=== PATIENT | female | born 1935 | race Caucasian/White ===

== ENCOUNTER 2022-06-12 16:07 | Inpatient (IN) | payer OTHER ==
[~2022-06-12] VITALS: Ht 165.1 cm; Wt 75.0 kg
[~2022-06-12 16:07] MED LIST: METO50TA18 PO
[2022-06-12 16:55] LABS: BASOPHILS % (AUTO) 0.7 % (0.0-5.0); HEMATOCRIT 43.6 % (36-48); LYMPHOCYTES % (AUTO) 12.8 % (21.0-51.0); MEAN CORPUSCULAR HEMOGLOBIN 31.1 pg (27.0-33.0); MEAN CORPUSCULAR HGB CONC 31.2 g/dL (32.0-36.0); MEAN CORPUSCULAR VOLUME 99.8 fL (79-99); NEUTROPHILS % (AUTO) 75.1 % (40.0-77.0); PLATELET COUNT (AUTO) 186 K/uL (130-400); RED BLOOD CELL COUNT(AUTO) 4.37 MIL/uL (4.00-5.50); WHITE BLOOD COUNT (AUTO) 7.3 K/uL (4.8-10.8)
[2022-06-12] MEDS ORDERED: 0.9%NACL 1000ML 500 ML IV ONE (17:00)
[2022-06-12] MEDS ORDERED: LABETALOL 20MG VIAL IV ONE (17:00)
[2022-06-12] MEDS ORDERED: METOPROLOL TARTRATE 1 MG/ML 5ML VIAL IV ONE ×3 (17:00→17:13)
[2022-06-12 17:20] LABS: CREATININE 1.3 mg/dL (0.5-1.5); POTASSIUM 4.3 mmol/L (3.5-5.1); TOTAL PROTEIN, SERUM 7.5 g/dL (6.0-8.3)
[2022-06-12] MEDS ORDERED: NITROGLYCERIN 0.4 MG SL TAB SL PRN (18:00)
[2022-06-12] MEDS ORDERED: DILTIAZEM 125MG+100 ML NS 125 ML IV SCH (18:30)
[2022-06-12] MEDS ORDERED: DILTIAZEM 50MG VIAL IV SCH (18:30)
[2022-06-12] MEDS ORDERED: FUROSEMIDE 40MG VIAL IV ONE (18:30)
[2022-06-12] MEDS ORDERED: MORPHINE 2 MG SYG IV PRN (21:00)
[2022-06-12] MEDS ORDERED: MORPHINE 4 MG SYG IV PRN (21:00)
[2022-06-12] MEDS ORDERED: ONDANSETRON 4MG INJ IV PRN (21:00)
[2022-06-12] MEDS ORDERED: ACETAMINOPHEN 325 MG TAB PO PRN ×2 (21:00)
[2022-06-13] MEDS ORDERED: ALPRAZOLAM 0.25 MG TABLET PO ONE (00:30)
[2022-06-13 00:55] VITALS: BP 138/96
[2022-06-13 04:06] VITALS: BP 108/69
[2022-06-13 04:21] LABS: BASOPHILS % (AUTO) 0.3 % (0.0-5.0); EOSINOPHILS % (AUTO) 0.1 % (0.0-8.0); HEMATOCRIT 41.4 % (36-48); LYMPHOCYTES % (AUTO) 10.8 % (21.0-51.0); MEAN CORPUSCULAR HEMOGLOBIN 31.1 pg (27.0-33.0); MEAN CORPUSCULAR HGB CONC 30.4 g/dL (32.0-36.0); MEAN CORPUSCULAR VOLUME 102.2 fL (79-99); MONOCYTES % (AUTO) 7.3 % (3.0-13.0); NEUTROPHILS % (AUTO) 81.1 % (40.0-77.0); PLATELET COUNT (AUTO) 167 K/uL (130-400); RED BLOOD CELL COUNT(AUTO) 4.05 MIL/uL (4.00-5.50); RED CELL DISTRIBUTION WIDTH 14.1 % (11.0-15.5)
[2022-06-13 04:29] LABS: CREATININE 1.1 mg/dL (0.5-1.5); MAGNESIUM 1.7 mg/dL (1.80-2.40); PHOSPHORUS 4.1 mg/dL (2.5-4.9); POTASSIUM 4.4 mmol/L (3.5-5.1)
[2022-06-13 08:00] VITALS: BP 123/79
[2022-06-13] MEDS ORDERED: MORPHINE 4 MG SYG IVP ONE (08:30)
[2022-06-13] MEDS ORDERED: MAGNESIUM 2GM PREMIX 50ML 50 ML IV ONE (08:53)
[2022-06-13] MEDS ORDERED: APIXABAN 2.5 MG TABLET PO SCH (09:00)
[2022-06-13] MEDS ORDERED: ENOXAPARIN SODIUM 30 MG/0.3 ML SQ SCH (09:00)
[2022-06-13] MEDS: FUROSEMIDE 20MG VIAL IV SCH ×2 (09:03→20:19)
[2022-06-13] MEDS: APIXABAN 5 MG TABLET PO SCH ×2 (09:03→20:20)
[2022-06-13] MEDS: FAMOTIDINE 20MG TAB PO SCH (09:03)
[2022-06-13] MEDS: METOPROLOL TARTRATE 50 MG TAB PO SCH ×2 (09:04→20:20)
[2022-06-13] MEDS ORDERED: FURO20TA4 PO (09:59)
[2022-06-13] MEDS ORDERED: METO50TA18 PO (09:59)
[2022-06-13] MEDS ORDERED: ATOR10TA69 PO (09:59)
[2022-06-13] MEDS ORDERED: BUSP10TA3 PO (09:59)
[2022-06-13] MEDS ORDERED: APIX2.5T PO (09:59)
[2022-06-13] MEDS ORDERED: POTASSIUM CHLORIDE 10% ELIXIR 20 MEQ/15 ML UDCUP PO PRN (10:00)
[2022-06-13] MEDS ORDERED: POTASSIUM CHLORIDE 20MEQ/100ML 100 ML IV PRN (10:00)
[2022-06-13] MEDS ORDERED: GUAIFENESIN-CODEINE 5 ML SYRUP PO PRN (10:30)
[2022-06-13] MEDS ORDERED: CEFTRIAXONE 1G VIAL IVPB ONE (11:00)
[2022-06-13] MEDS ORDERED: AZITHROMYCIN 500MG+NS 250ML IVPB SCH (11:00)
[2022-06-13] MEDS ORDERED: SODIUM CHLORIDE 3% FOR INHALATION 4 ML/AMP VIAL.NEB IH ONE ×2 (11:16→23:02)
[2022-06-13 11:26] VITALS: BP 116/65
[2022-06-13] MEDS: IPRATROPIUM/ALBUTEROL SULFATE 3 ML SOLUTION IH SCH ×3 (12:03→23:15)
[2022-06-13 12:16] LABS: APPEARANCE,URINE CLEAR (CLEAR); BILIRUBIN,URINE NEGATIVE (NEGATIVE); COLOR,URINE YELLOW (YELLOW); GLUCOSE, URINE (UA) NEGATIVE (NEGATIVE); KETONES,URINE NEGATIVE (NEGATIVE); LEUKOCYTE ESTERASE ,URINE NEGATIVE Leu/uL (NEGATIVE); NITRATE,URINE NEGATIVE (NEGATIVE); OCCULT BLOOD,URINE NEGATIVE (NEGATIVE); PROTEIN,URINE NEGATIVE (NEGATIVE); UROBILINOGEN,URINE 0.2 mg/dL (0.2-1.0)
[2022-06-13] MEDS: ALPRAZOLAM 0.25 MG TABLET PO PRN (13:10)
[2022-06-13] MEDS: MEMANTINE HCL 5 MG TABLET PO SCH (13:10)
[2022-06-13 16:11] VITALS: BP 115/68
[2022-06-13 19:03] VITALS: BP 132/74
[2022-06-13] MEDS: ATORVASTATIN 10 MG TABLET PO SCH (20:20)
[2022-06-14 00:03] VITALS: BP 94/67
[2022-06-14 03:03] VITALS: BP 117/72
[2022-06-14 03:59] LABS: HEMATOCRIT 39.4 % (36-48); MEAN CORPUSCULAR HGB CONC 29.9 g/dL (32.0-36.0); MEAN CORPUSCULAR VOLUME 103.4 fL (79-99); RED BLOOD CELL COUNT(AUTO) 3.81 MIL/uL (4.00-5.50); RED CELL DISTRIBUTION WIDTH 14.1 % (11.0-15.5); WHITE BLOOD COUNT (AUTO) 8.6 K/uL (4.8-10.8)
[2022-06-14 04:20] LABS: B-TYPE NATRIURETIC PEPTIDE 375 pg/mL (0-100)
[2022-06-14 04:49] LABS: CARBON DIOXIDE 35 mmol/L (21-32); CHLORIDE 100 mmol/L (101-111); CREATININE 1.1 mg/dL (0.5-1.5); GLOMERULAR FILTR. RATE CALC 48 mL/min (>90); GLUCOSE,RANDOM 79 mg/dL (70-105); POTASSIUM 4.1 mmol/L (3.5-5.1); SODIUM SERUM 140 mmol/L (136-145); UREA NITROGEN, BLOOD 27 mg/dL (7-18)
[2022-06-14 04:55] LABS: CRP QUANTITATIVE < 2.00 mg/L (0.00-9.0)
[2022-06-14 05:07] LABS: ERYTHROCYTE SEDIMENTATION RATE 11 MM/HR (0-30)
[2022-06-14] MEDS: IPRATROPIUM/ALBUTEROL SULFATE 3 ML SOLUTION IH SCH ×4 (06:56→23:31)
[2022-06-14 07:33] VITALS: BP 113/68
[2022-06-14] MEDS: MEMANTINE HCL 5 MG TABLET PO SCH (08:50)
[2022-06-14] MEDS: APIXABAN 5 MG TABLET PO SCH ×2 (08:50→21:01)
[2022-06-14] MEDS: FAMOTIDINE 20MG TAB PO SCH (08:50)
[2022-06-14] MEDS: METOPROLOL TARTRATE 50 MG TAB PO SCH ×3 (08:50→21:02)
[2022-06-14] MEDS: AZITHROMYCIN 500MG+NS 250ML IVPB SCH (08:51)
[2022-06-14] MEDS: FUROSEMIDE 20MG VIAL IV SCH ×2 (08:51→21:02)
[2022-06-14] MEDS ORDERED: ALPRAZOLAM 0.25 MG TABLET PO ONE (09:00)
[2022-06-14] MEDS: ALPRAZOLAM 0.25 MG TABLET PO SCH (09:18)
[2022-06-14] MEDS ORDERED: SODIUM CHLORIDE 3% FOR INHALATION 4 ML/AMP VIAL.NEB IH ONE (10:47)
[2022-06-14 11:32] VITALS: BP 101/67
[2022-06-14 15:30] VITALS: BP 109/67
[2022-06-14 19:03] VITALS: BP 107/68
[2022-06-14] MEDS: ATORVASTATIN 10 MG TABLET PO SCH (21:01)
[2022-06-15] VITALS (7 sets, daily range): BP systolic 96–130; BP diastolic 60–73
[2022-06-15] MEDS: ALPRAZOLAM 0.25 MG TABLET PO PRN ×2 (01:19→22:33)
[2022-06-15] MEDS: IPRATROPIUM/ALBUTEROL SULFATE 3 ML SOLUTION IH SCH ×4 (07:00→23:37)
[2022-06-15] MEDS: FUROSEMIDE 20MG VIAL IV SCH ×3 (07:56→22:30)
[2022-06-15] MEDS: AZITHROMYCIN 500MG+NS 250ML IVPB SCH (07:56)
[2022-06-15] MEDS: ALPRAZOLAM 0.25 MG TABLET PO SCH (07:56)
[2022-06-15] MEDS: APIXABAN 5 MG TABLET PO SCH ×2 (07:57→20:37)
[2022-06-15] MEDS: FAMOTIDINE 20MG TAB PO SCH (07:57)
[2022-06-15] MEDS: MEMANTINE HCL 5 MG TABLET PO SCH (07:57)
[2022-06-15] MEDS: METOPROLOL TARTRATE 50 MG TAB PO SCH ×4 (07:57→22:30)
[2022-06-15] MEDS: ATORVASTATIN 10 MG TABLET PO SCH (20:36)
[2022-06-15 21:19] LABS: CREATININE 1.4 mg/dL (0.5-1.5); POTASSIUM 3.4 mmol/L (3.5-5.1)
[2022-06-15 21:24] LABS: MAGNESIUM 1.7 mg/dL (1.80-2.40); TOTAL PROTEIN, SERUM 6.3 g/dL (6.0-8.3)
[2022-06-16 00:35] VITALS: BP 100/59
[2022-06-16 03:56] LABS: BASOPHILS % (AUTO) 0.5 % (0.0-5.0); EOSINOPHILS % (AUTO) 2.5 % (0.0-8.0); HEMATOCRIT 40.4 % (36-48); LYMPHOCYTES % (AUTO) 19.7 % (21.0-51.0); MEAN CORPUSCULAR HEMOGLOBIN 31.2 pg (27.0-33.0); MEAN CORPUSCULAR HGB CONC 31.9 g/dL (32.0-36.0); MEAN CORPUSCULAR VOLUME 97.8 fL (79-99); MONOCYTES % (AUTO) 11.9 % (3.0-13.0); NEUTROPHILS % (AUTO) 64.8 % (40.0-77.0); PLATELET COUNT (AUTO) 178 K/uL (130-400); RED BLOOD CELL COUNT(AUTO) 4.13 MIL/uL (4.00-5.50); RED CELL DISTRIBUTION WIDTH 13.5 % (11.0-15.5)
[2022-06-16 04:00] VITALS: BP 110/65
[2022-06-16 04:09] LABS: CREATININE 1.1 mg/dL (0.5-1.5); TOTAL PROTEIN, SERUM 6.1 g/dL (6.0-8.3)
[2022-06-16 04:22] LABS: POTASSIUM 2.8 mmol/L (3.5-5.1)
[2022-06-16] MEDS: KCL 20 MEQ ERTAB PO PRN ×3 (05:28→11:36)
[2022-06-16] MEDS: IPRATROPIUM/ALBUTEROL SULFATE 3 ML SOLUTION IH SCH (06:34)
[2022-06-16 07:11] VITALS: BP 118/72
[2022-06-16] MEDS ORDERED: MAGNESIUM 2GM PREMIX 50ML 50 ML IV ONE (08:03)
[2022-06-16] MEDS: APIXABAN 5 MG TABLET PO SCH (08:10)
[2022-06-16] MEDS: ALPRAZOLAM 0.25 MG TABLET PO SCH (08:10)
[2022-06-16] MEDS: FUROSEMIDE 20MG VIAL IV SCH (08:10)
[2022-06-16] MEDS: MEMANTINE HCL 5 MG TABLET PO SCH (08:10)
[2022-06-16] MEDS: METOPROLOL TARTRATE 50 MG TAB PO SCH ×2 (08:10→13:08)
[2022-06-16] MEDS: FAMOTIDINE 20MG TAB PO SCH (08:10)
[2022-06-16] MEDS: AZITHROMYCIN 500MG+NS 250ML IVPB SCH (08:10)
[2022-06-16] MEDS ORDERED: FUROSEMIDE 20 MG TABLET PO SCH (11:17)
[2022-06-16 11:24] VITALS: BP 104/64
== END 2022-06-16 15:53 | DRG 177 ==
LOC: EDH 16:07 → EDHIP 20:48 → 2DH 06-13 00:20
PROVIDERS: ADMIT Internal Medicine; ATTEND Internal Medicine
DX: J15.6 Pneumonia due to other Gram-negative bacteria (principal); I50.33 Acute on chronic diastolic (congestive) heart failure; I48.19 Other persistent atrial fibrillation; F03.94 Unspecified dementia, unspecified severity, with anxiety; Z20.822 Contact with and (suspected) exposure to COVID-19; F41.1 Generalized anxiety disorder; I11.0 Hypertensive heart disease with heart failure; E78.5 Hyperlipidemia, unspecified; E87.6 Hypokalemia; I27.20 Pulmonary hypertension, unspecified; R29.6 Repeated falls; Z79.899 Other long term (current) drug therapy; Z79.01 Long term (current) use of anticoagulants; Z90.49 Acquired absence of other specified parts of digestive tract; Z91.199 Patient's noncompliance with other medical treatment and regimen due to unspecified reason; Z93.3 Colostomy status
CPT/HCPCS: 36415; 71045; 80048; 80053; 81003; 82607; 82746; 82948; 83605; 83735; 83880; 84100; 84145; 84484; 85018; 85025; 85027; 85651; 86140; 87635; 87804; 93005; 94640; 94664; 97039; C9803; G0378; J0456; J0696; J1940; J2270; J3475; J3490